=== PATIENT | male | born 1965 | race Two or more races ===

== ENCOUNTER 2021-01-19 07:42 | Emergency (ER) | payer SELFPAY ==
[~2021-01-19] VITALS: Ht 165.1 cm; Wt 85.3 kg
[2021-01-19 08:14] LABS: BASO % 0 % (0-3); EOS % 0 % (0-3); HEMATOCRIT 48.5 % (39.0-53.0); HEMOGLOBIN 16.8 g/dL (13.0-17.5); LYMPH # 1.1 x10^3/uL (1.0-4.8); LYMPH % 12 % (24-48); MEAN CORPUSCULAR HEMOGLOBIN 31 pg (25-35); MEAN CORPUSCULAR HGB CONC 35 g/dL (31-37); MEAN CORPUSCULAR VOLUME 90 fL (79-100); MONO # 0.3 x10^3/uL (0.0-1.1); MONO % 4 % (0-9); NEUT # 7.7 x10^3/uL (1.8-7.7); NEUT % 84 % (31-73); PLATELET COUNT 236 x10^3/uL (140-400); RED BLOOD COUNT 5.42 x10^6/uL (4.30-5.70); WHITE BLOOD COUNT 9.2 x10^3/uL (4.0-11.0)
[2021-01-19] MEDS: IV NORMAL SALINE 1000ML BAG 1,000 ML IV ONE (08:21)
[2021-01-19] MEDS: DEXAMETHASONE SOD PHOS 4 MG/ML VIAL IVP ONE (08:22)
[2021-01-19] MEDS: MECLIZINE HCL 12.5 MG TABLET. PO ONE (08:22)
[2021-01-19] MEDS: PROCHLORPERAZINE 10 MG/2 ML VIAL. IV ONE (08:22)
[2021-01-19] MEDS: diphenhydrAMINE HCL 25 MG CAPSULE PO ONE (08:22)
[2021-01-19 08:31] LABS: CALCIUM 8.5 mg/dL (8.5-10.1); CREATININE 0.9 mg/dL (0.7-1.3); GFR 87.9; POTASSIUM 3.6 mmol/L (3.5-5.1)
--- NOTE | 2021-01-19 08:38 | RAD ---
EXAM: Chest, single view. HISTORY: Dizziness. COMPARISON: 03/11/2018 FINDINGS: A frontal view of the chest is obtained. There is no infiltrate, pleural effusion or pneumo thorax. The heart is normal in size. IMPRESSION: No acute pulmonary finding. Electronically signed by: Daija Villa MD (01/19/2021 8:35 AM) [id number]
[2021-01-19 08:41] LABS: ALBUMIN 3.8 g/dL (3.4-5.0); ALBUMIN/GLOBULIN RATIO 1.2 (1.0-1.7); TOTAL BILIRUBIN 0.6 mg/dL (0.2-1.0)
--- NOTE | 2021-01-19 08:53 | RAD ---
EXAMINATION: CT HEAD/BRAIN WO (CT HEAD WITHOUT IV CONTRAST) CLINICAL HISTORY: Dizziness, sudden headache TECHNIQUE: Serial axial images without IV contrast were obtained from the vertex to the foramen magnu m. CT Dose Reduction Employed: One or more of the following individualized dose reduction techniques wer e utilized for this examination: 1. Automated exposure control 2. Adjustment of the mA and/or kV ac cording to patient size 3. Use of iterative reconstruction technique. COMPARISON: None FINDINGS: Acute Change: No evidence of an acute infarct or other acute parenchymal process. Hemorrhage: No evidence of acute intracranial hemorrhage. Mass Lesion/Mass Effect: No evidence of intracranial mass or extraaxial fluid collection. No signific ant mass effect. Chronic Change: None significant changes. Parenchyma: No significant volume loss. Parenchyma otherwise within normal limits for age. Ventricles: Ventricles within normal limits for age. Paranasal Sinuses and Skull Base: Partially visualized small mucous retention cyst or polyp in the an terior left maxillary sinus. Minimal mucoperiosteal thickening in the dependent right maxillary sinus . Visualized skull base and soft tissues unremarkable. IMPRESSION: No evidence of acute intracranial abnormality. Electronically signed by: Rikki Baer DO (01/19/2021 8:51 AM) [id number]
--- NOTE | 2021-01-19 09:05 | ED.ADGEN ---
Past Medical History Past Medical History: Other Additional Past Medical Histor: SBO Past Surgical History: No Surgical History Smoking Status: Never Smoker Alcohol Use: None General Adult EDM: Chief Complaint: DIZZY/LIGHT HEADED HPI: HPI: Patient is a 55-year-old male who presents to the emergency room complaining of dizziness, nausea, vomiting, headache. Patient states he woke up around 4:00 t his morning and walked to the bathroom. At that time he relates that he felt dizzy. He has had dizziness previously and states that the two other times that this is happened feels similar. He states that the headache started after he started vomiting. He states that it is frontal and is not severe in nature. He feels dizzy mostly when he gets up and moves around. Review of Systems: Review of Systems: Complete ROS is negative unless otherwise documented in HPI Current Medications: Current Medications Medications (Trade) Dose Ordered Sig/Jennifer Start Time Stop Time Status Last Admin Dose Admin Dexamethasone Sodium Phosphate (Decadron) 10 mg 1X ONCE 01/19/21 08:00 01/19/21 08:07 DC 01/19/21 08:22 10 MG Diphenhydramine HCl (Benadryl) 25 mg 1X ONCE 01/19/21 08:00 01/19/21 08:07 DC 01/19/21 08:22 25 MG Meclizine HCl (Antivert) 25 mg 1X ONCE 01/19/21 08:00 01/19/21 08:07 DC 01/19/21 08:22 25 MG Prochlorperazine Edisylate (Compazine) 10 mg 1X ONCE 01/19/21 08:00 01/19/21 08:07 DC 01/19/21 08:22 10 MG Sodium Chloride 1,000 ml @ 1,000 mls/hr 1X ONCE 01/19/21 08:00 01/19/21 08:59 DC 01/19/21 08:21 1,000 MLS/HR Allergies: Allergies: Allergies Coded Allergies Type Severity Reaction Last Updated Verified No Known Drug Allergies 01/19/21 No Physical Exam: PE: General: Awake, alert, NAD. Well Nourished, well hydrated. Cooperative HEENT: Atraumatic, EOMI, PERRL, airway patent, moist oral mucosa Neck: Supple, trachea midline Respiratory: CTA bilaterally, normal effort, no wheezing/crackles CV: RRR, no murmur, cap refill <2 GI: Soft, nondistended, nontender, no masses MSK: No obvious deformities Skin: Warm, dry, intact Neuro: A&O x3, speech NL, 5/5 strength in BUE/BLE distally and proximally, CN 2- 12 intact, cerebellar testing normal Psych: Normal affect, normal mood, not suicidal or homicidal Current Patient Data: Labs: Laboratory Tests Test 01/19/21 08:00 01/19/21 09:20 White Blood Count 9.2 x10^3/uL (4.0-11.0) Red Blood Count 5.42 x10^6/uL (4.30-5.70) Hemoglobin 16.8 g/dL (13.0-17.5) Hematocrit 48.5 % (39.0-53.0) Mean Corpuscular Volume 90 fL (79-100) Mean Corpuscular Hemoglobin 31 pg (25-35) Mean Corpuscular Hemoglobin Concent 35 g/dL (31-37) Red Cell Distribution Width 13.0 % (11.5-14.5) Platelet Count 236 x10^3/uL (140-400) Neutrophils (%) (Auto) 84 % (31-73) H Lymphocytes (%) (Auto) 12 % (24-48) L Monocytes (%) (Auto) 4 % (0-9) Eosinophils (%) (Auto) 0 % (0-3) Basophils (%) (Auto) 0 % (0-3) Neutrophils # (Auto) 7.7 x10^3/uL (1.8-7.7) Lymphocytes # (Auto) 1.1 x10^3/uL (1.0-4.8) Monocytes # (Auto) 0.3 x10^3/uL (0.0-1.1) Eosinophils # (Auto) 0.0 x10^3/uL (0.0-0.7) Basophils # (Auto) 0.0 x10^3/uL (0.0-0.2) Sodium Level 140 mmol/L (136-145) Potassium Level 3.6 mmol/L (3.5-5.1) Chloride Level 104 mmol/L (98-107) Carbon Dioxide Level 24 mmol/L (21-32) Anion Gap 12 (6-14) Blood Urea Nitrogen 18 mg/dL (8-26) Creatinine 0.9 mg/dL (0.7-1.3) Estimated GFR (Cockcroft-Gault) 87.9 BUN/Creatinine Ratio 20 (6-20) Glucose Level 138 mg/dL (70-99) H Calcium Level 8.5 mg/dL (8.5-10.1) Total Bilirubin 0.6 mg/dL (0.2-1.0) Aspartate Amino Transferase (AST) 18 U/L (15-37) Alanine Aminotransferase (ALT) 34 U/L (16-63) Alkaline Phosphatase 75 U/L (46-116) Troponin I Quantitative < 0.017 ng/mL (0.000-0.055) RR-Mxj-P-Type Natriuretic Peptide 75 pg/mL (0-124) Total Protein 7.0 g/dL (6.4-8.2) Albumin 3.8 g/dL (3.4-5.0) Albumin/Globulin Ratio 1.2 (1.0-1.7) Ethyl Alcohol Level < 10 mg/dL (0-10) Urine Collection Type Unknown Urine Color Yellow Urine Clarity Clear Urine pH 8.0 (<5.0-8.0) Urine Specific Labadie 1.025 (1.000-1.030) Urine Protein Negative mg/dL (NEG-TRACE) Urine Glucose (UA) Negative mg/dL (NEG) Urine Ketones (Stick) Negative mg/dL (NEG) Urine Blood Negative (NEG) Urine Nitrite Negative (NEG) Urine Bilirubin Negative (NEG) Urine Urobilinogen Dipstick 0.2 mg/dL (0.2 mg/dL) Urine Leukocyte Esterase Negative (NEG) Urine RBC 0 /HPF (0-2) Urine WBC 0 /HPF (0-4) Urine Bacteria 0 /HPF (0-FEW) Urine Mucus Marked /LPF Laboratory Tests 01/19/21 08:00 Laboratory Tests 01/19/21 08:00 Vital Signs: Vital Signs Date Time Temp Pulse Resp B/P (MAP) Pulse Ox O2 Delivery O2 Flow Rate FiO2 01/19/21 09:41 68 109/69 (82) 98 Room Air 01/19/21 07:55 98.8 18 98.8 EKG: EKG: [] Heart Score: C/O Chest Pain: N/A Risk Factors: Risk Factors: DM, Current or recent (<one month) smoker, HTN, HLP, family history of CAD, obesity. Risk Scores: Score 0 - 3: 2.5% MACE over next 6 weeks - Discharge Home Score 4 - 6: 20.3% MACE over next 6 weeks - Admit for Clinical Observation Score 7 - 10: 72.7% MACE over next 6 weeks - Early Invasive Strategies Radiology/Procedures: Radiology/Procedures: [] Course & Med Decision Making: Course & Med Decision Making Pertinent Labs and Imaging studies reviewed. (See chart for details) Patient is a 55-year-old male who presents to the emergency room complaining of dizziness, headache, nausea, vomiting. Patient states the vomiting seems to be due to his dizziness. He is able to walk up but feels dizzy when he does try to walk. Is a normal neurologic exam. CT head was ordered to rule out a subarachnoid hemorrhage or intracranial bleed given his headache and vomiting. Patient has had the symptoms for less than [address] head is normal. Given that his symptoms have been present for less than 6 hours patient does not need a lumbar puncture to rule out subarachnoid hemorrhage. Work-up was ordered to rule out other causes of dizziness. Patient was treated for a migraine and given meclizine for dizziness. His last admission for dizziness and vomiting was for small bowel obstruction. He states he did have abdominal pain at that time and does not have abdominal pain today. Abdomen is soft and nontender. Work-up is unremarkable. Patient was given water and ambulated around the emergency room without any difficulty. He states he is feeling much better would like to go home. It is likely that this is related to either migraine or vertigo. Patient's test results and vitals while in the ED were fully reviewed and discussed with the patient. Patient is stable and at this time does not need admission to the hospital. We have discussed strict return precautions and the importance of following up with their Primary Care Physician. Patient stated understanding and was given an opportunity to ask any questions. Patient is in agreement with plan. Braeden Disclaimer: Braeden Disclaimer: This electronic medical record was generated, in whole or in part, using a voice recognition dictation system. Departure Departure Impression: Primary Impression: Dizziness Disposition: 01 DC HOME SELF CARE/HOMELESS Condition: STABLE Referrals: UNKNOWN PCP NAME (PCP) Patient Instructions: Dizziness Scripts Meclizine Hcl (MECLIZINE HCL) 25 Mg Tablet 1 TAB PO TID PRN for dizziness, #20 TAB Prov: DIONI ESQUIVEL MD 01/19/21 DIONI ESQUIVEL MD Jan 19, 2021 09:05
[2021-01-19 09:41] VITALS: BP 109/69
[2021-01-19 09:55] LABS: BILIRUBIN,URINE NEGATIVE (NEG); CLARITY,URINE CLEAR; COLOR,URINE YELLOW; NITRITE,URINE NEGATIVE (NEG); PROTEIN,URINE NEGATIVE (NEG-TRACE); UROBILINOGEN,URINE 0.2 mg/dL (0.2 mg/dL)
[2021-01-19 10:02] LABS: BACTERIA,URINE 0 /HPF (0-FEW); RBC,URINE 0 /HPF (0-2); WBC,URINE 0 /HPF (0-4)
[2021-01-19] MEDS ORDERED: MECL-75 PO (10:38)
--- NOTE | 2021-01-19 12:46 | EKG ---
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
== END 2021-01-19 10:54 | disposition home or self-care (01) ==
LOC: ER 07:42
DX: R42 Dizziness and giddiness (principal); R11.2 Nausea with vomiting, unspecified; R51.9 Headache, unspecified
CPT/HCPCS: 36415; 70450; 71045; 80053; 81001; 83880; 84484; 85025; 93005; 96361; 96374; 96375; 99285; G0480; J0780; J1100; J7030; J8597; Q0163